=== PATIENT | female | born 2000 | race African-American/Black ===

== ENCOUNTER 2023-03-06 11:33 | Inpatient (IN) | payer MEDICAID, SELFPAY ==
[2023-03-06 11:34] VITALS: BP 162/81; PULSE 65; RESP 18; TEMP 35.9; O2SAT 100; BMI 26.3
--- NOTE | 2023-03-06 12:36 | EDS_ITS ---
HPI History of Present Illness Chief Complaint: Substance Abuse Narrative Narrative: 22-year-old female presents with request for detox from opiates/fentanyl. She states that she has been abusing opiates which contain fentanyl for the last year. She last took a 30 mg tablet on Sunday, 4 days ago. She presents with a 180 counselor [facility] as she showed up there at 10:00 today, and is requesting detox from opiates. She states she has not had any menstrual period for the last 3 months since she gave . She denies any nausea or vomiting. No diarrhea or abdominal pain. [facility] Medical History Asthma delivery delivered Home Medications albuterol sulfate 90 mcg/actuation aerosol inhaler 1 inh inhalation Q6H PRN asthma 03/06/23 [History Last Taken Unknown] Allergy/AdvReac Type Severity Reaction Status Date / Time Food Allergies: Uncoded Allergy Anaphylaxis Verified 03/06/23 11:36 Social History Smoking Status: Current every day smoker tobacco type: e-cigarettes ROS ROS ED ROS Narrative Constitutional: No fever, no chills. HEENT: No sore throat. No neck pain. No loss of vision. No rhinorrhea. Cardiovascular: No chest pain. No palpitations. No pedal edema. Respiratory: No cough, no shortness of breath. Abdominal: No abdominal pain. No nausea. No vomiting. Genitourinary: No dysuria. No hematuria. Musculoskeletal: No myalgias. No arthralgias. Neurologic: No headaches. No dizziness. No lightheadedness. Skin: No rash. No change in color. Psychiatric: No depression. No anxiety. Positive opiate abuse and addiction. EXAM Physical Exam Narrative Exam Narrative: Afebrile. Vital signs noted. HEENT: Normocephalic. Atraumatic. PERRL, EOMI. Neck soft and supple. No point tenderness or step off. Cardiovascular: Regular rate and rhythm. No murmurs, rubs, or gallops appreciated. Respiratory: No tachypnea. Lungs clear to auscultation bilaterally. Gastrointestinal: Abdomen soft, nontender, with normoactive bowel sounds. No rebound or guarding. Neurological: Awake. Alert. Nonfocal, nonlateralizing. Skin: No rash. Normal color. No pallor. Musculoskeletal: No pedal edema. Full range of motion extremities. Const Vital Signs: 03/06/23 11:34 Temperature 96.7 F L Temperature Source Temporal Pulse Rate 65 Respiratory Rate 18 Blood Pressure 162/81 H Blood Pressure Mean 108 Pulse Ox 100 Oxygen Delivery Method Room Air MDM MDM MDM Narrative Medical decision making narrative: Medical screening labs will be obtained and reviewed. I reviewed her laboratory work from today, and she has a normal white count of 5.8, hemoglobin normal at 12.7, platelet count normal at 362. Potassium slightly low at 3.4 which I think is nonspecific, glucose is 70 with a low anion gap of 1. She will be given something to eat orally. Her urine for drugs of abuse is positive for cannabinoids and MDMA. Additionally, ethyl alcohol is negative. At this point in time, as her serum is also negative, I do feel that she is medically cleared for detox. I discussed patient with Dr. Alvarado for admission to the medical surgical floor. Disposition is admit in stable condition. History & Record Review Discussion w/independent historian: Patient Additional record(s) reviewed:: No prior records Lab Data Attestation: I reviewed the patient's lab results. Labs: Laboratory Results - last 24 hr 03/06/23 03/06/23 03/06/23 12:40 12:40 12:40 WBC 5.8 RBC 5.54 H Hgb 12.7 Hct 40.9 MCV 73.8 L MCH 22.9 L MCHC 31.1 L RDW Std Deviation 41.0 RDW Coeff of Chano 15.6 H Plt Count 362 MPV 10.0 Immature Gran % (Auto) 0.200 Neut % (Auto) 26.5 L Lymph % (Auto) 56.0 H [place] % (Auto) 5.9 Eos % (Auto) 10.4 H Baso % (Auto) 1.0 Absolute Neuts (auto) 1.5 L Absolute Lymphs (auto) 3.23 Nucleated RBC % 0 Sodium 140 Potassium 3.4 L Chloride 109 H Carbon Dioxide 30.0 Anion Gap 1 L BUN 9 Creatinine 0.90 Estim Creat Clear Calc 78.20 Est GFR (MDRD) Af Amer 101 Est GFR (MDRD) Non-Af 84 BUN/Creatinine Ratio 10.0 Glucose 70 L Calcium 9.2 Total Bilirubin 0.60 AST 12 L ALT 16 Alkaline Phosphatase 67 Total Protein 7.7 Albumin 3.7 Globulin 4.0 Albumin/Globulin Ratio 0.9 Serum , Qual Urine Opiates Screen Urine Methadone Screen Ur Barbiturates Screen Ur Phencyclidine Scrn Ur Amphetamines Screen MDMA (Ecstasy) Screen U Benzodiazepines Scrn Urine Cocaine Screen U Cannabinoids Screen Ur Drug Screen Comment Ethyl Alcohol < 3.0 03/06/23 03/06/23 12:40 12:40 WBC RBC Hgb Hct MCV MCH MCHC RDW Std Deviation RDW Coeff of [place] Plt Count MPV Immature Gran % (Auto) Neut % (Auto) Lymph % (Auto) [place] % (Auto) Eos % (Auto) Baso % (Auto) Absolute Neuts (auto) Absolute Lymphs (auto) Nucleated RBC % Sodium Potassium Chloride Carbon Dioxide Anion Gap BUN Creatinine Estim Creat Clear Calc Est GFR (MDRD) Af Amer Est GFR (MDRD) Non-Af BUN/Creatinine Ratio Glucose Calcium Total Bilirubin AST ALT Alkaline Phosphatase Total Protein Albumin Globulin Albumin/Globulin Ratio Serum , Qual NEGATIVE Urine Opiates Screen NEGATIVE Urine Methadone Screen NEGATIVE Ur Barbiturates Screen NEGATIVE Ur Phencyclidine Scrn NEGATIVE Ur Amphetamines Screen NEGATIVE MDMA (Ecstasy) Screen POSITIVE H U Benzodiazepines Scrn NEGATIVE Urine Cocaine Screen NEGATIVE U Cannabinoids Screen POSITIVE H Ur Drug Screen Comment Ethyl Alcohol Discharge Plan Dx/Rx/DC Orders Clinical Impression: Polysubstance abuse, Desire for detoxification, Opiate use Disposition Disposition: Acute Care Hospital [facility]
[2023-03-06 12:57] LABS: Absolute Lymphocyte Count 3.23 X10^3/uL (0.83-4.51); Absolute Neutrophil Count 1.5 X10^3/uL (2.0-7.7); Basophil# 0.06 X10^3/uL; Eosinophils% 10.4 % (0-5); Hematocrit 40.9 % (37-47); Hemoglobin 12.7 g/dL (12.0-15.0); Lymphocyte # 3.23 X10^3/ul (0.83-4.51); Mean Corp Hgb Conc 31.1 g/dL (32-36); Mean Corpuscular Hgb 22.9 pg (27.0-32.0); Mean Corpuscular Volume 73.8 fL (81-99); Monocyte# 0.34 X10^3/uL; Monocyte% 5.9 % (0-10); NRBC Flagged by Analyzer 0 % (0-5); Neutrophil # 1.53 X10^3/uL (2.7-7.7); Neutrophil % 26.5 % (47-70); Platelet Count 362 K/mm3 (150-450); RBC Distribution Width CV 15.6 % (11.6-14.6); Red Blood Count 5.54 M/mm3 (4.2-5.4); White Blood Count 5.8 K/mm3 (4.4-11.0)
[2023-03-06 13:05] LABS: Internal QC Validated? YES +Cl - CLEAR BKGD; Pregnancy, Serum, hCG Quali. NEGATIVE Negative
[2023-03-06 13:13] LABS: Alcohol, Blood (Medical)-Serum < 3.0 mg/dL; Amphetamine Urine VISTA NEGATIVE (<1000 ng/mL); Barbiturate Urine VISTA NEGATIVE (< 200 ng/mL); Benzodiazepine Urine VISTA NEGATIVE (< 200 ng/mL); Cocaine Urine VISTA NEGATIVE (< 300 ng/mL); Ecstacy Urine VISTA POSITIVE (< 500 ng/mL); Methadone Urine VISTA NEGATIVE (< 300 ng/mL); PCP Urine VISTA NEGATIVE (< 25 ng/mL); THC Urine VISTA POSITIVE (< 50 ng/mL); Vista UDS pH Range 5
[2023-03-06 13:17] LABS: ALB/GLOB Ratio 0.9 RATIO (0.9-2.4); AST(SGOT) 12 U/L (15-37); Alanine Aminotransfer ALT/SGPT 16 U/L (13-56); Albumin, Serum 3.7 g/dL (3.2-5.0); Alkaline Phosphatase 67 U/L (45-117); Anion Gap 1 (5-15); BUN 9 mg/dL (7-18); Calcium,Total 9.2 mg/dL (8.5-10.1); Chloride 109 mmol/L (98-107); EST Glomerular Filtration Rate 84 mL/min (>60); Est Glom Filt Rate - Afr Amer 101 mL/min (>60); Glucose 70 mg/dL (74-106); Potassium 3.4 mmol/L (3.5-5.1); Protein, Total 7.7 g/dL (6.4-8.2); Sodium Level 140 mmol/L (136-145)
--- NOTE | 2023-03-06 14:38 | NURSING ---
MED SURG [facility] DETOX FROM OPIATES
[2023-03-06 14:48] VITALS: BP 119/79; PULSE 61; RESP 14; TEMP 35.9; O2SAT 100
[2023-03-06 15:13] VITALS: BP 136/91; PULSE 75; RESP 18; TEMP 36.4; O2SAT 100
[2023-03-06 15:15] VITALS: BMI 26.9
--- NOTE | 2023-03-06 16:12 | HP.PCM_ITS ---
HPI - General General Date of Admission: 03/06/23 Date of Service: 03/06/23 Chief Complaint: Opioid abuse and requesting for detoxification HPI Narrative ROSMERY JACOBS, is a 22 F with a history of opiate abuse and who presents for detoxification. Patient uses oxycodone recreationally and illicitly and which she purchases on the street. States she takes about 30 mg about every other day. Last use was 3 days ago on Sunday. Other than feeling sleepy at this time, denies any pruritus, abdominal pain or cramps or diaphoresis or any other symptoms that may suggest acute withdrawal. Denies any chest pain or shortness of breath. Patient is 3 months . [facility] Medical History Asthma delivery delivered Substance abuse Home Medications albuterol sulfate 90 mcg/actuation aerosol inhaler 1 inh inhalation Q6H PRN asthma 03/06/23 [History Last Taken Unknown] Allergy/AdvReac Type Severity Reaction Status Date / Time coconut Allergy Anaphylaxis Verified 03/06/23 15:22 Food Allergies: Uncoded Allergy Anaphylaxis Verified 03/06/23 11:36 pineapple Allergy Anaphylaxis Verified 03/06/23 15:22 Social History Smoking Status: Current every day smoker tobacco type: e-cigarettes ROS ROS Narrative Denies any chest pain or shortness of breath. All other systems reviewed and essentially negative as above in the body of the history. Vital Signs Vital Signs Vital Signs: 03/06/23 11:34 03/06/23 14:48 03/06/23 15:13 Temperature 35.9 C L 35.9 C L 36.4 C L Temperature Source Temporal Temporal Oral Pulse Rate 65 61 75 Respiratory Rate 18 14 18 Blood Pressure 162/81 H 119/79 136/91 H Blood Pressure Mean 108 92 106 Blood Pressure Source Monitor Blood Pressure Position Sitting Blood Pressure Location Left Arm Pulse Ox 100 100 100 Oxygen Delivery Method Room Air Room Air Room Air Weight Weight: 66.7 kg Body Mass Index (BMI) 26.9 Physical Exam Narrative General exam. Young lady, not in any overt distress and not particularly ill looking HEENT. Oral mucosa moist no pallor or jaundice Neck. Neck is supple. Skin. Slight papular eruptions on the face. Possibly acne Lungs. Nonlabored breathing. Clear to auscultation Heart. First and second heart sounds heard no murmurs. Abdomen. Soft and full nontender no organomegaly Extremities. 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 Conscious alert and oriented x3. Cranial 2-12 grossly intact. Results Medical Records Data Attestation: I reviewed the patient's medical records Lab / Micro Data Attestation: I reviewed the patient's lab results. Result Diagrams: 03/06/23 12:40 03/06/23 12:40 Labs: Laboratory Results - last 24 hr 03/06/23 12:40: WBC 5.8, RBC 5.54 H, Hgb 12.7, Hct 40.9, MCV 73.8 L, MCH 22.9 L, MCHC 31.1 L, RDW Std Deviation 41.0, RDW Coeff of Chano 15.6 H, Plt Count 362, MPV 10.0, Immature Gran % (Auto) 0.200, Neut % (Auto) 26.5 L, Lymph % (Auto) 56.0 H, [place] % (Auto) 5.9, Eos % (Auto) 10.4 H, Baso % (Auto) 1.0, Absolute Neuts (auto) 1.5 L, Absolute Lymphs (auto) 3.23, Nucleated RBC % 0 03/06/23 12:40: Sodium 140, Potassium 3.4 L, Chloride 109 H, Carbon Dioxide 30.0, Anion Gap 1 L, BUN 9, Creatinine 0.90, Estim Creat Clear Calc 78.20, Est GFR (MDRD) Af Amer 101, Est GFR (MDRD) Non-Af 84, BUN/Creatinine Ratio 10.0, Glucose 70 L, Calcium 9.2, Total Bilirubin 0.60, AST 12 L, ALT 16, Alkaline Phosphatase 67, Total Protein 7.7, Albumin 3.7, Globulin 4.0, Albumin/Globulin Ratio 0.9 03/06/23 12:40: Ethyl Alcohol < 3.0 03/06/23 12:40: Urine Opiates Screen NEGATIVE, Urine Methadone Screen NEGATIVE, Ur Barbiturates Screen NEGATIVE, Ur Phencyclidine Scrn NEGATIVE, Ur Amphetamines Screen NEGATIVE, MDMA (Ecstasy) Screen POSITIVE H, U Benzodiazepines Scrn NEGATIVE, Urine Cocaine Screen NEGATIVE, U Cannabinoids Screen POSITIVE H, Ur Drug Screen Comment 03/06/23 12:40: Serum , Qual NEGATIVE Assessment & Plan Assessment/Plan (1) Desire for detoxification: (2) Polysubstance abuse: (3) Opiate use: PLAN: Plan Assessment and plan 1. Opioid abuse with illicitly obtained oxycodone. Patient being admitted to the hospital for detoxification. Will place patient on CINA protocol. Will start on sublingual buprenorphine. Consult transplant case manager. Symptom management. Charges/Coding Visit Charges Inpatient E&M: 92835 Init Hosp L2
[2023-03-06 20:23] VITALS: BP 98/64; PULSE 70; RESP 16; TEMP 37; O2SAT 100
[2023-03-07 04:29] VITALS: BP 118/76; PULSE 73; RESP 16; TEMP 37.1; O2SAT 99
[2023-03-07] MEDS: Dicyclomine 10 MG Capsule 20 MG PO (04:33)
[2023-03-07] MEDS: Ondansetron 8 MG Tablet PO (04:33)
--- NOTE | 2023-03-07 07:48 | PCM.PN.HOSP ---
Reason for Visit Reason for Visit: Diagnoses Opioid use, unspecified, uncomplicated (03/06/23) Other psychoactive substance abuse, uncomplicated (03/06/23) Objective Data Objective Data Vital Signs: Vital Signs Temp Pulse Resp BP Pulse Ox O2 Del Method 98.7 F 73 16 118/76 99 Room Air 03/07/23 04:29 03/07/23 04:29 03/07/23 04:29 03/07/23 04:29 03/07/23 04:29 03/07/23 04:29 Oxygen Delivery Method Room Air Weight: 147 lb 0.773 oz Body Mass Index (BMI) 26.9 Lab / Micro Data Result Diagrams: 03/06/23 12:40 03/06/23 12:40 Labs: Laboratory Results - last 24 hr 03/06/23 12:40: WBC 5.8, RBC 5.54 H, Hgb 12.7, Hct 40.9, MCV 73.8 L, MCH 22.9 L, MCHC 31.1 L, RDW Std Deviation 41.0, RDW Coeff of Chano 15.6 H, Plt Count 362, MPV 10.0, Immature Gran % (Auto) 0.200, Neut % (Auto) 26.5 L, Lymph % (Auto) 56.0 H, [place] % (Auto) 5.9, Eos % (Auto) 10.4 H, Baso % (Auto) 1.0, Absolute Neuts (auto) 1.5 L, Absolute Lymphs (auto) 3.23, Nucleated RBC % 0 03/06/23 12:40: Sodium 140, Potassium 3.4 L, Chloride 109 H, Carbon Dioxide 30.0, Anion Gap 1 L, BUN 9, Creatinine 0.90, Estim Creat Clear Calc 78.20, Est GFR (MDRD) Af Amer 101, Est GFR (MDRD) Non-Af 84, BUN/Creatinine Ratio 10.0, Glucose 70 L, Calcium 9.2, Total Bilirubin 0.60, AST 12 L, ALT 16, Alkaline Phosphatase 67, Total Protein 7.7, Albumin 3.7, Globulin 4.0, Albumin/Globulin Ratio 0.9 03/06/23 12:40: Ethyl Alcohol < 3.0 03/06/23 12:40: Urine Opiates Screen NEGATIVE, Urine Methadone Screen NEGATIVE, Ur Barbiturates Screen NEGATIVE, Ur Phencyclidine Scrn NEGATIVE, Ur Amphetamines Screen NEGATIVE, MDMA (Ecstasy) Screen POSITIVE H, U Benzodiazepines Scrn NEGATIVE, Urine Cocaine Screen NEGATIVE, U Cannabinoids Screen POSITIVE H, Ur Drug Screen Comment 03/06/23 12:40: Serum , Qual NEGATIVE Physical Exam Narrative Patient uses fentanyl and oxycodone 30 mg pills. She does not know the amount of fentanyl in the pill because it is mixed. Denies IV use. Feels he owning, nonspecific tiredness generalized weakness fatigue. No hallucination, nightmares, illusion or abnormal thoughts Physical exam General: Alert, Oriented x3, Cooperative HEENT: Atraumatic, PERRLA, EOMI, Normocephalic Oral: No Gingival or Mucosal Lesions/ Ulcerations Neck: Supple, No JVD, Negative Carotid Bruits Lungs: Air entry diminished in bilateral lung bases. No crepitation/rhonchi Cardiovascular: Regular rate, Regular Rhythm, Normal S1, Normal S2, No murmurs Abdomen: Bowel Sounds Present, Soft, Non Tender, Non-Distended : No renal angle tenderness. No suprapubic tenderness. Extremities: No edema, Capillary Refill Less than 3 Seconds Skin: No rashes, No breakdown Musculoskeletal: No Tenderness to Palpation of Joints or Extremities Neurological: Cranial nerves II-XII grossly intact, DTR 2+/4 and Symmetrical, Neuro grossly intact Psych/Mental Status: Flat affect. Anxiety. Assessment & Plan Assessment/Plan (1) Desire for detoxification: (2) Polysubstance abuse: (3) Opiate use: PLAN: Plan Assessment and plan 1. Acute opioid withdrawal syndrome with history of chronic opioid use disorder and dependence: Patient is admitted on MedSurg floor. The patient is started on buprenorphine along with other adjunctive medications as needed for medical stabilization as per order set of opioid withdrawal syndrome.Patient also on trazodone, hydroxyzine, gabapentin as needed ordered. product engineering manager consult. Denies IV drug abuse. No prior history of deep abscess osteomyelitis or endocarditis. Denies hep C hep B and STI. 2. Chronic intermittent stable asthma: Patient not on a scheduled regular inhaler but albuterol as needed. Not in acute exacerbation. 3. Chronic nicotine use: Patient is smoked 1 pack/day for less than 5 years and then switched to vaping. On nicotine patch. Advised to quit nicotine use. VTE prophylaxis low risk. Early ambulation encouraged. Charges/Coding Visit Charges Inpatient E&M: 37157 Subs Hosp L2
[2023-03-07 10:30] VITALS: BP 108/70; PULSE 68; RESP 16; TEMP 36.7; O2SAT 100
--- NOTE | 2023-03-07 11:31 | ADDICTION ---
This race and sports book writer met with PT to conduct ASAM, MSE, AUDIT, DUDIT assessments and to plan for d/c. PT A+Ox4 and participated actively. All assessments completed and placed in PT's chart. PT plans to f/u with [facility] at [facility] for follow-up in patient treatment services on . [facility] will transport to treatment.
[2023-03-07] MEDS: Acetaminophen 500 MG Tablet PO (11:42)
[2023-03-07] MEDS: Potassium Chloride Oral Tablet 20 MEQ 40 MEQ PO (11:43)
[2023-03-07 15:31] VITALS: BP 115/70; PULSE 66; RESP 16; TEMP 36.6; O2SAT 100
[2023-03-07 22:15] VITALS: BP 111/65; PULSE 72; RESP 16; TEMP 36.8; O2SAT 98
[2023-03-07] MEDS: hydrOXYzine PAM 25 MG Capsule 50 MG PO (22:31)
[2023-03-07] MEDS: Ibuprofen 600 MG Tablet PO (22:31)
[2023-03-08 06:13] VITALS: BP 115/75; PULSE 64; RESP 16; TEMP 37; O2SAT 99
[2023-03-08] MEDS: hydrOXYzine PAM 25 MG Capsule 50 MG PO (08:19)
[2023-03-08 08:52] VITALS: BP 122/66; PULSE 72; RESP 18; TEMP 36.6; O2SAT 100
[2023-03-08] MEDS: Methocarbamol 750 MG Tablet 1500 MG PO (14:29)
[2023-03-08] MEDS: Acetaminophen 500 MG Tablet PO (14:29)
[2023-03-08 14:35] VITALS: BP 125/70; PULSE 77; RESP 18; TEMP 36.9; O2SAT 100
--- NOTE | 2023-03-08 16:13 | PN.HOSP_ITS ---
Reason for Visit Reason for Visit: Diagnoses Opioid use, unspecified, uncomplicated (03/06/23) Other psychoactive substance abuse, uncomplicated (03/06/23) Subjective Subjective Follow-up for acute opioid withdrawal syndrome. Patient denies using benzodiazepine. Still has anxiety, restlessness, mild insomnia and repeated awakening in between sleep. Denies hallucination. Objective Data Objective Data Vital Signs: Vital Signs Temp Pulse Resp BP Pulse Ox O2 Del Method 98.4 F 77 18 125/70 H 100 Room Air 03/08/23 14:35 03/08/23 14:35 03/08/23 14:35 03/08/23 14:35 03/08/23 14:35 03/08/23 14:35 Oxygen Delivery Method Room Air Weight: 147 lb 0.773 oz Body Mass Index (BMI) 26.9 Lab / Micro Data Result Diagrams: 03/06/23 12:40 03/06/23 12:40 Physical Exam Narrative Patient uses fentanyl and oxycodone 30 mg pills. She does not know the amount of fentanyl in the pill because it is mixed. Denies IV use. Feels he owning, nonspecific tiredness generalized weakness fatigue. No hallucination, nightmares, illusion or abnormal thoughts Physical exam General: Alert, Oriented x3, Cooperative HEENT: Atraumatic, PERRLA, EOMI, Normocephalic Oral: No Gingival or Mucosal Lesions/ Ulcerations Neck: Supple, No JVD, Negative Carotid Bruits Lungs: Air entry diminished in bilateral lung bases. No crepitation/rhonchi Cardiovascular: Regular rate, Regular Rhythm, Normal S1, Normal S2, No murmurs Abdomen: Bowel Sounds Present, Soft, Non Tender, Non-Distended : No renal angle tenderness. No suprapubic tenderness. Extremities: No edema, Capillary Refill Less than 3 Seconds Skin: No rashes, No breakdown Musculoskeletal: No Tenderness to Palpation of Joints or Extremities Neurological: Cranial nerves II-XII grossly intact, DTR 2+/4 and Symmetrical, Neuro grossly intact Psych/Mental Status: Flat affect. Anxiety. Insomnia. Assessment & Plan Assessment/Plan (1) Desire for detoxification: (2) Polysubstance abuse: (3) Opiate use: PLAN: Plan Assessment and plan 1. Acute opioid withdrawal syndrome with history of chronic opioid use disorder and dependence: Patient is admitted on MedSur floor. The patient is started on buprenorphine along with other adjunctive medications as needed for medical stabilization as per order set of opioid withdrawal syndrome.Patient also on trazodone, hydroxyzine, gabapentin as needed ordered. production planning manager consult. Denies IV drug abuse. No prior history of deep abscess osteomyelitis or endocarditis. Denies hep C hep B and STI. 03/08: Continue medications. 180 production planning manager follow-up. Patient is still has withdrawal symptoms from opioid. 2. Chronic intermittent stable asthma: Patient not on a scheduled regular inhaler but albuterol as needed. Not in acute exacerbation. 3. Chronic nicotine use: Patient is smoked 1 pack/day for less than 5 years and then switched to vaping. On nicotine patch. Advised to quit nicotine use. VTE prophylaxis low risk. Early ambulation encouraged. Charges/Coding Visit Charges Inpatient E&M: 45403 Subs Hosp L2
[2023-03-08 19:14] VITALS: BP 116/70; PULSE 83; RESP 18; TEMP 36.7; O2SAT 100
[2023-03-08] MEDS: Gabapentin 300 MG Capsule PO (19:14)
[2023-03-08] MEDS: traZODone 100 MG Tablet PO (21:01)
[2023-03-09 03:49] VITALS: BP 120/68; PULSE 72; RESP 16; TEMP 36.6; O2SAT 99
[2023-03-09] MEDS: hydrOXYzine PAM 25 MG Capsule 50 MG PO (07:36)
[2023-03-09] MEDS: Acetaminophen 500 MG Tablet PO (07:36)
[2023-03-09 08:04] VITALS: BP 123/69; PULSE 69; RESP 18; TEMP 37.2; O2SAT 100
--- NOTE | 2023-03-09 09:14 | DCINST_ITS ---
Discharge Instructions Diet Discharge Diet: No restrictions Activity Discharge Activity: Return to Normal Activity Weight Bearing Status: Weight bearing as tolerated Dressing / Incision Call your doctor if you observe: Fever of 101 or Higher, Coldness, Increased Pain, Numbness or Tingling, Change in Color, Inability to urinate, Inability to have a bowel movement, Using more than 1 pad per hour, Shortness of breath, Dizziness, Fainting spells, Swelling in the ankles, Chest pain, Prolonged hiccupping, Increased palpitations (irregular heartbeat) and Calf discomfort Follow Up Care When: IN 2 WEEKS Test Results: Test results from this visit will be discussed in further detail at your follow- up appointment, if applicable. Discharge Plan Admission Admit Date/Time: 03/06/23 15:54 Primary Reason for Your Visit: Acute opioid withdrawal syndrome. Attending Provider: Delonte Mena Consulting Providers: Glenda Alvarado Discharge Orders/Prescriptions Prescriptions: Continued albuterol sulfate 90 mcg/actuation Hfa Aerosol Inhaler 1 inh INHALATION Q6H PRN (Reason: asthma) Referrals / Follow Up: [facility] Doctor,Out of [Non-Staff] - Disposition Disposition (needs filled in before D/C Order can be placed): Home, Self Care
--- NOTE | 2023-03-09 10:38 | DS.PCM_ITS ---
Providers Date of Admission: 03/06/23 Date of Discharge: 03/09/23 Reason For Visit: DETOX FROM OPIATES Diagnosis Discharge Diagnosis (1) Desire for detoxification: Status: Acute (2) Polysubstance abuse: Status: Acute Code(s): F19.10 - Other psychoactive substance abuse, uncomplicated (3) Opiate use: Status: Acute Code(s): F11.90 - Opioid use, unspecified, uncomplicated Plan Assessment and plan 1. Acute opioid withdrawal syndrome with history of chronic opioid use disorder and dependence: Patient is admitted on MedSurg floor. The patient is started on buprenorphine along with other adjunctive medications as needed for medical stabilization as per order set of opioid withdrawal syndrome.Patient also on trazodone, hydroxyzine, gabapentin as needed ordered. support group manager consult. Denies IV drug abuse. No prior history of deep abscess osteomyelitis or endocarditis. Denies hep C hep B and STI. 03/08: Continue medications. 180 support group manager follow-up. Patient is still has withdrawal symptoms from opioid. 03/09: Patient withdrawal symptoms are much improved. She still has anxiety and could not sleep therefore requested hydroxyzine. Prescription for hydroxyzine sent to [facility] retail pharmacy. No driving or handling machinery equipment while on hydroxyzine. Follow with PCP for permission for driving. 2. Chronic intermittent stable asthma: Patient not on a scheduled regular inhaler but albuterol as needed. Not in acute exacerbation. 3. Chronic nicotine use: Patient is smoked 1 pack/day for less than 5 years and then switched to vaping. On nicotine patch. Advised to quit nicotine use. VTE prophylaxis low risk. Early ambulation encouraged. Discharge medication reconciliation done. Discharge follow-up instructions completed. Discharge process discussed with the patient and all questions were answered to patient's satisfaction. Discharged home. Follow-up outpatient substance use rehab as set up by 180. Total time spent, exact 35 minutes on discharge meds reconciliation, examination, coordination of care with nurses and ancillary staff, review of imaging and blood test and discussion with the patient on follow-up instructions. Medications at Discharge Home Medications albuterol sulfate 90 mcg/actuation aerosol inhaler 1 inh inhalation Q6H PRN asthma 03/06/23 hydroxyzine pamoate 25 mg capsule 25 mg PO Q6H PRN PRN mild anxiety 30 days #30 caps 03/09/23 Physical Exam Narrative Seen and examined on the day of discharge. Anxiety. No hallucinations or flashback or nightmares. Physical exam General: Alert, Oriented x3, Cooperative HEENT: Atraumatic, PERRLA, EOMI, Normocephalic Oral: No Gingival or Mucosal Lesions/ Ulcerations Neck: Supple, No JVD, Negative Carotid Bruits Lungs: Air entry diminished in bilateral lung bases. No crepitation/rhonchi Cardiovascular: Regular rate, Regular Rhythm, Normal S1, Normal S2, No murmurs Abdomen: Bowel Sounds Present, Soft, Non Tender, Non-Distended : No renal angle tenderness. No suprapubic tenderness. Extremities: No edema, Capillary Refill Less than 3 Seconds Skin: No rashes, No breakdown Musculoskeletal: No Tenderness to Palpation of Joints or Extremities Neurological: Cranial nerves II-XII grossly intact, DTR 2+/4 and Symmetrical, Neuro grossly intact Psych/Mental Status: Flat affect. Anxiety. Insomnia. Weight / BMI Weight Weight: 147 lb 0.773 oz Body Mass Index (BMI) 26.9 ABG / Lab / Microbiology Data Result Diagrams: 03/06/23 12:40 03/06/23 12:40 D/C Instructions Discharge Diet: No restrictions Weight Bearing Status: Weight bearing as tolerated Call your doctor if you observe: Fever of 101 or Higher, Coldness, Increased Pain, Numbness or Tingling, Change in Color, Inability to urinate, Inability to have a bowel movement, Using more than 1 pad per hour, Shortness of breath, Dizziness, Fainting spells, Swelling in the ankles, Chest pain, Prolonged hiccupping, Increased palpitations (irregular heartbeat) and Calf discomfort When: IN 2 WEEKS Meaningful Use Info Meaningful Use Diagnoses (Choose all that apply): None applicable Discharge Plan Admission Admit Date/Time: 03/06/23 15:54 Primary Reason for Your Visit: Acute opioid withdrawal syndrome. Attending Provider: Delonte Mena Consulting Providers: Glenda Alvarado Discharge Orders/Prescriptions Prescriptions: New hydroxyzine pamoate 25 mg Capsule 25 mg PO Q6H PRN PRN (Reason: mild anxiety) 30 Days Qty: 30 0RF Rx Instructions: Avoid driving while taking hydroxyzine. Continued albuterol sulfate 90 mcg/actuation Hfa Aerosol Inhaler 1 inh INHALATION Q6H PRN (Reason: asthma) Referrals / Follow Up: [facility] Doctor,Out of [Non-Staff] - Disposition Disposition (needs filled in before D/C Order can be placed): Home, Self Care Charges/Coding Visit Charges Inpatient E&M: 79116 Disch Hosp >30min
== END 2023-03-09 10:45 | disposition home or self-care (01) | DRG 772 ==
LOC: ED 14:14 → MS3 16:04
PROVIDERS: Admitting Provider Internal Medicine; Emergency Provider Emergency Medicine; Visit Provider Internal Medicine
DX: F11.23 Opioid dependence with withdrawal (principal); F19.10 Other psychoactive substance abuse, uncomplicated; J45.20 Mild intermittent asthma, uncomplicated; F17.290 Nicotine dependence, other tobacco product, uncomplicated
CPT/HCPCS: 36415; 80053; 80307; 82077; 84703; 85025; 99283; 99406